=== PATIENT | male | born 1975 | race Caucasian/White ===

== ENCOUNTER 2024-02-16 13:29 | Emergency (ER) | payer OTHER, SELFPAY ==
[2024-02-16] VITALS (15 sets, daily range): BP systolic 50–199; BP diastolic 14–128; BMI 35.8
[2024-02-16] MEDS: DILAUDID 1 MG IV (13:59)
--- NOTE | 2024-02-16 14:50 | ED.GENMED ---
History of Present Illness
<Chan Cordova DO - Last Filed: 02/16/24 15:16>
General
Chief Complaint: Musculo-Skeletal Complaint
Time Seen by Provider: 02/16/24 13:39
<Brenton Nassar PA-C - Last Filed: 02/16/24 18:13>
History of Present Illness
History of Present Illness:
48-year-old male presents for evaluation of right knee injury. He states he tripped and fell and now the knee is locked in a flexed position. Obvious deformity to the right anterior knee
Past History
<Chan Cordova DO - Last Filed: 02/16/24 15:16>
Past History
ED Past Medical History: Negative HTN or IDDM
Social History
Tobacco: Non-smoker
Alcohol: None
Drug: None
Personal:
Living: with family
Employment: Employed
Family History
Family History: Negative Early CAD
Review of Systems
<Brenton Nassar PA-C - Last Filed: 02/16/24 18:13>
Review of Systems
Allergies reviewed?: Yes
All Other Systems: ROS reviewed and negative except as documented in HPI and ROS
Phy Exam
<HELEN Renee Last Filed: 02/16/24 18:13>
Physical Exam
Physical Exam:
GEN: Writhing in pain, well-developed well-nourished
HEENT: Oral mucosa moist, no scleral icterus
Cardiac: Regular rate
Lung: No respiratory distress, no tachypnea
MSK: Right knee fully flexed with lateral superior lie of the patella, soft boggy area at the patella tendon insertion site
Skin: Good color, no pallor or jaundice, no rashes
Neuro: AO x3, moves all extremities freely
Psych: Calm, cooperative
Course
<Chan Cordova, DO - Last Filed: 02/16/24 15:16>
Orders/Labs/Results
Orders:
Orders
02/16/24 13:49
HYDROmorphone [Dilaudid] 1 mg IV NOW STA
CR Knee - Right 1 Or 2 Views Urgent
Reason For Exam: patella dislocation vs tendon rupture
02/16/24 16:00
Oxycodone [Roxicodone] 5 mg PO NOW STA
Vital Signs
Initial and Last Documented VS:
Initial Vital Signs
Pulse Resp BP Pulse Ox
87 16 130/91 98
02/16/24 13:38 02/16/24 13:38 02/16/24 13:38 02/16/24 13:38
Last Documented Vital Signs
Temp Pulse Resp BP Pulse Ox
98.5 F 80 20 50/21 96
02/16/24 14:54 02/16/24 15:59 02/16/24 15:59 02/16/24 16:06 02/16/24 15:45
<Brenton Nassar PA-C - Last Filed: 02/16/24 18:13>
Orders/Labs/Results
Orders:
Orders
02/16/24 13:49
HYDROmorphone [Dilaudid] 1 mg IV NOW STA
CR Knee - Right 1 Or 2 Views Urgent
Reason For Exam: patella dislocation vs tendon rupture
02/16/24 16:00
Oxycodone [Roxicodone] 5 mg PO NOW STA
Vital Signs
Initial and Last Documented VS:
Initial Vital Signs
Pulse Resp BP Pulse Ox
87 16 130/91 98
02/16/24 13:38 02/16/24 13:38 02/16/24 13:38 02/16/24 13:38
Last Documented Vital Signs
Temp Pulse Resp BP Pulse Ox
98.5 F 80 20 50/21 96
02/16/24 14:54 02/16/24 15:59 02/16/24 15:59 02/16/24 16:06 02/16/24 15:45
Procedures
<Chan Cordova DO - Last Filed: 02/16/24 15:16>
Moderate Sedation
ASA Risk Score: Class I
Chart and allergies reviewed: Yes
Consent for anesthesia obtained: Yes
Time out completed (validating right patient & procedure): Yes
Moderate Sedation Start Time(when first medication is given): 14:57
History of difficult intubation: No
Airway free of obstruction: Yes
Patient has a gag reflex: Yes
Patient is able to open mouth: Yes
Patient has no dentures: Yes
Patient has no loose teeth: Yes
Medication administered by Provider during Moderate Sedation: IV Propofol (mg)
Total dose administered: 100
Time drug administered: 14:57
Moderate Sedation Procedure End Time: 15:09
Comment: Time out 1456
Joint/Fracture Reduction
right lateral patellar dislocation:
Indication for procedure:: concern for patellar dislocation
Procedure completed by: Ellis Nassar PA-C and Chan Cordova DO
Consent form signed: Yes
Joint reduced: with anesthesia sedation
Injury was: closed
Further treatement: needs further treatment
Post reduction exam: unstable
Capillary Refill: normal
Peripheral Pulses: dorsalis pedis (right): 2+
<Brenton Nassar PA-C - Last Filed: 02/16/24 18:13>
MDM/Problems Addressed
MDM/Problems Addressed:
Clinically we could not determine whether this was a patella tendon rupture versus isolated patellar dislocation and due to the patient's exquisite pain we are unable to examine him adequately thus underwent procedural sedation for potential
reduction of the patella however on exam under anesthesia it was obvious the patient sustained a patellar tendon rupture. Placed in knee immobilizer and referred to orthopedics as an outpatient. He is strongly advised to cancel his upcoming travel
plans as he will likely need surgery
<Brenton Nassar PA-C - Last Filed: 02/16/24 18:13>
*Critical Care Note
Total Time (30-74mins, 75-104mins- exclusive of procedures): Not Applicable
ED Attending Note
<Chan Cordova DO - Last Filed: 02/16/24 15:16>
ED Attending Note
Patient seen and examined by attending physician: Yes
I performed the substantive portion of visit, reviewed & personally made and approve the management plan that is documented in note by myself or HONEY.: Yes
ED Attending Note:
I have seen and evaluated the patient with a [id number] encounter. I have spoken to the advance practicer provider and involved in the medical history, the physical exam, medical decision making.
Evaluation and management service: agree unless noted differently below.
Results interpretation: agree unless noted differently below.
Focused HPI: 48-year-old male presenting with right knee pain. He injured his knee while walking and bending. Patient found to have what appears to be a patellar dislocation of the right. His right leg is stuck in flexion. The distal extremity
is neurovascularly intact
Physical exam: Uncomfortable, right leg flexed. Patella position laterally. Distal extremity neurovascularly intact
Medical Decision Making: Patient was unable to tolerate reduction at bedside. Patient signed consent for moderate sedation
3:15 PM after patient was sedated, it became clear that this was not a patellar dislocation but rather a patellar tendon rupture. Due to his muscular stature, the quadricep had pulled the patellar laterally making it appear to be a dislocation
rather than a rupture. Will discuss case with orthopedics
-
Portions of this chart may have been created with voice recognition software.� Occasional wrong word or��sound alike� substitutions may have occurred due to the inherent limitations of voice recognition software.
Discharge Plan
Departure
Patient Disposition: Home (Routine Discharge)
Date of Disposition: 02/16/24
Time of Disposition: 15:40
Patient with high blood pressure during this ER visit?: No
Discharge Problem:
Rupture of right patellar tendon
Instructions: Quadriceps and Patellar Tendon Injuries, MODERATE SEDATION ADULT
Prescriptions:
New
oxycodone 5 mg tablet
5 mg PO Q8H PRN (Reason: Pain) Qty: 10 0RF
No Action
methylphenidate HCl 10 MG tablet
10 mg PO BID
acetylcysteine [NAC] 600 MG capsule
3 tab PO BID
Liver Care Cap.Bid
3 capsules PO BID
Magnesium Tab
3 tab PO BID
Referrals:
Keiko Fried I., DO [Active] -
Stand Alone Forms: Return to Work
Activity Restrictions/Additional Instructions:
Ice and elevate
USE THE IMMOBILIZER AT ALL TIMES UNTIL ORTHOPEDIC FOLLOW UP
Interventions
Interventions:
*Risk Screen - Suicide Last Done: 02/16/24 16:29
*General Assessment Last Done: 02/16/24 16:29
*Neglect/Abuse Screening Last Done: 02/16/24 16:29
ED- Fall Risk Assessment Last Done: 02/16/24 16:29
*ED COVID-19 Vaccine History Last Done: 02/16/24 16:29
*Nursing Disposition Last Done: 02/16/24 16:29
ED-Musculoskeletal Assessment Last Done: 02/16/24 13:45
Discharge Date and Time
Discharge Date/Time: 02/16/24 16:31
Print Language: SCOTTISH
[2024-02-16] MEDS: ROXICODONE 5 MG PO (16:06)
== END 2024-02-16 16:31 | disposition home or self-care (01) ==
LOC: EMR 13:29
PROVIDERS: EMERGENCY PHYSICIAN Student in an Organized Health Care Education/Training Program; PRIMARYCARE PHYSICIAN Family Medicine
DX: S76.111A Strain of right quadriceps muscle, fascia and tendon, initial encounter (principal); W01.0XXA Fall on same level from slipping, tripping and stumbling without subsequent striking against object, initial encounter; Y93.01 Activity, walking, marching and hiking
CPT/HCPCS: 99283; 27560; 96374; 99152; 73560